=== PATIENT | female | born 1990 | race Caucasian/White ===

== ENCOUNTER → 2017-09-02 11:19 | Outpatient (CLI) | payer OTHER, SELFPAY ==
--- NOTE | 2017-09-02 | DI.US.S_ITS ---
Patient Name: TRUE HENNING date: 1990 Sex: F Attending Physician: Eddie Indications: Date: 09/02/2017 11:58 At the request of: ALESIA DEAN Procedure: US breast LT limited ULTRASOUND OF LEFT BREAST: 09/02/2017 CLINICAL: Palpable left breast lump. No prior exams were available for comparison. Real-time ultrasound of the left breast was performed on the areas of interest. Mcnair scale images of the real-time examination were reviewed. IMPRESSION: NEGATIVE There is no sonographic evidence of malignancy. There is no abnormality seen in the left breast to correspond with the palpable abnormality, however, clinical followup is recommended. Return to annual mammogram screening schedule is recommended. This exam was interpreted at Station ID: [id number]. Electronically Signed By: Shannan childs/christopher:09/02/2017 13:58:11 letter sent: Clinical Evaluation Ultrasound BI-RADS: 1 Negative
== END ==
PROVIDERS: Visit Provider Family Medicine
DX: R92.8 Other abnormal and inconclusive findings on diagnostic imaging of breast (principal)
CPT/HCPCS: 76642